=== PATIENT | female | born 1990 | race Caucasian/White ===

== ENCOUNTER 2017-03-21 17:58 | Emergency (ER) | payer OTHER ==
[~2017-03-21] VITALS: Ht 162.6 cm; Wt 47.3 kg
[2017-03-21 18:11] VITALS: BP 106/62; PULSE 89; RESP 18; TEMP 98.8; O2SAT 98
--- NOTE | 2017-03-21 19:03 | PD ---
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 Patient states that she fell yesterday on the right hip. Patient denies loss of consciousness. Patient denies any headache or neck pain. Patient denies any chest pain or shortness of breath. Patient states that she has sharp pain localized around the right rib area and right low quadrant abdomen. Patient denies any pain radiation. Patient denies any fever chills. Patient states that she has some spotting yesterday. Patient denies any vaginal bleeding today. Patient is about 8 weeks . Patient awaiting appointment with OB physician. Patient does not know her blood type. PFSH Past Medical History Medical History: Denies Significant Hx Diminished Hearing: No Musculoskeletal: Yes (Scoliosis) Immunizations Current: Yes Tetanus Vaccination: > 5 Years Influenza Vaccination: No ?: LMP: 8 weeks Past Surgical History Tonsillectomy: Yes Social History Alcohol Use: No Tobacco Use: Yes (1-2 cigarettes/day, trying to quit ) Substance Use: No Allergies-Medications (Allergen,Severity, Reaction): Coded Allergies: No Known Allergies (Unverified , 03/21/17) Reported Meds & Prescriptions Reported Meds & Active Scripts Active No Active Prescriptions or Reported Medications Review of Systems General / Constitutional: No: Fever Eyes: No: Visual changes HENT: No: Headaches Cardiovascular: No: Chest Pain or Discomfort Respiratory: No: Shortness of Breath Gastrointestinal: Positive: Abdominal Pain Genitourinary: No: Dysuria Musculoskeletal: Positive: Pain Skin: No Rash Neurologic: No: Weakness Psychiatric: No: Depression Endocrine: No: Polydipsia Hematologic/Lymphatic: No: Easy Bruising Physical Exam Narrative GENERAL: Well-nourished, well-developed patient. SKIN: Focused skin assessment warm/dry. HEAD: Normocephalic. EYES: No scleral icterus. No injection or drainage. NECK: Supple, trachea midline. No JVD or lymphadenopathy. CARDIOVASCULAR: Regular rate and rhythm without murmurs, gallops, or rubs. RESPIRATORY: Breath sounds equal bilaterally. No accessory muscle use. GASTROINTESTINAL: Abdomen soft, non-tender, nondistended. MUSCULOSKELETAL: Patient has mild tenderness on palpation lateral and 90 aspect the right hip joint. Full range of motion the right hip. Patient has no problem weightbearing right hip right leg. BACK: Nontender without obvious deformity. No CVA tenderness. 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 No blood in the vaginal vault. Data Data Last Documented VS Vital Signs Date Time Temp Pulse Resp B/P (MAP) Pulse Ox O2 Delivery O2 Flow Rate FiO2 03/21/17 18:11 98.8 89 18 106/62 (77) 98 Orders Orders Complete Rh (03/21/17 18:52) Urinalysis - C+S If Indicated (03/21/17 18:52) MDM Medical Decision Making Medical Screen Exam Complete: Yes Emergency Medical Condition: Yes Differential Diagnosis Differential diagnosis including contusion, fracture, dislocation, threatened AB , incomplete AB, completed AB, ectopic . Narrative Course 26-year-old female with right low quadrant abdominal pain, right hip pain and vaginal spotting. Patient's about 8 week . Procedures Procedure Narrative Emergency Department Pelvic ultrasound was performed with patient consent. The curvilinear probe was used in the transverse and sagittal views within the suprapubic region revealing single intrauterine . heart rate was 146. Fetus active. Diagnosis Primary Impression: Vaginal bleeding during , antepartum Additional Impression: Contusion of right hip Qualified Codes: S70.01XA - Contusion of right hip, initial encounter Patient Instructions: General Instructions Additional Instructions: Continue with vitamins. Follow-up with local OB physician. Return if increased abdominal pain, vaginal bleeding. Med/Other Pt SpecificInfo: No Meds Exist/No RX given Scripts No Active Prescriptions or Reported Meds Disposition: 01 DISCHARGE HOME Condition: Stable Jayden Soares MD Mar 21, 2017 19:03
[2017-03-21 19:21] LABS: BLOOD, URINE NEG (NEG); GLUCOSE,URINE NEG (NEG); KETONE, URINE NEG (NEG); NITRITE,URINE NEG (NEG)
[2017-03-21 19:33] LABS: MUCUS URINE MANY /lpf (OCC); URINE COLOR YELLOW (YELLW/STRAW)
[2017-03-21 19:34] LABS: CALCIUM OXALATE CRYSTALS,URINE MANY /hpf; COMMENT (UR) CULTURE INDICATED; CULTURE IF INDICATED CULTURE INDICATED; RBC, URINE 0-3 /hpf (0-3); SQUAMOUS EPITHELIAL CELL URINE > 8 /hpf (0-5)
[2017-03-21] MEDS ORDERED: CEPH-460 PO (19:40)
[2017-03-21] MEDS ORDERED: CEPHALEXIN MONOHYDRATE 500 MG CAP PO ONE (19:45)
[2017-03-21 19:51] VITALS: BP 101/72
--- NOTE | 2017-03-21 19:52 | PD ---
Physical Exam Time Seen by Provider: 19:[address] Soares left this patient with me to check the urine and the Rh status. Data Data Last Documented VS Vital Signs Date Time Temp Pulse Resp B/P (MAP) Pulse Ox O2 Delivery O2 Flow Rate FiO2 03/21/17 19:51 60 18 101/72 (82) 100 03/21/17 18:11 98.8 Orders Orders Complete Rh (03/21/17 18:52) Urinalysis - C+S If Indicated (03/21/17 18:52) Urine Culture (03/21/17 19:00) Cephalexin (Keflex) (03/21/17 19:45) Labs Laboratory Tests Test 03/21/17 19:00 Urine Color YELLOW Urine Turbidity SLIGHT Urine pH 6.0 Urine Specific [place] 1.028 Urine Protein NEG mg/dL Urine Glucose (UA) NEG mg/dL Urine Ketones NEG mg/dL Urine Occult Blood NEG Urine Nitrite NEG Urine Bilirubin NEG Urine Leukocyte Esterase NEG Urine RBC 0-3 /hpf Urine WBC 9-14 /hpf Urine Squamous Epithelial Cells > 8 /hpf Urine Calcium Oxalate Crystals MANY /hpf Urine Mucus MANY /lpf Microscopic Urinalysis Comment CULTURE INDICATED MDM Medical Record Reviewed: Yes Supervised Visit with [facility]: Yes Interpretation(s) The urine shows 9-14 white cells with many calcium oxalate crystals in culture is indicated. The specific gravity is 1.028. The blood type is O+. Differential Diagnosis Urinary tract infection, Rh-, , minor pelvic trauma Diagnosis Primary Impression: Vaginal bleeding during , antepartum Additional Impressions: Contusion of right hip Qualified Codes: S70.01XA - Contusion of right hip, initial encounter UTI (urinary tract infection) Patient Instructions: General Instructions, Rho(D) Immune Globulin (By injection), First Trimester Vaginal Bleed (ED), Hip Contusion (ED) Departure Forms: Tests/Procedures Additional Instruction: Continue with vitamins. Follow-up with local OB physician. Return if increased abdominal pain, vaginal bleeding. Med/Other Pt SpecificInfo: Prescription(s) given Scripts Cephalexin (Keflex) 500 Mg Capsule 500 MG PO QID for Infection for 10 Days, CAP 0 Refills Prov: Jese Ascencio MD 03/21/17 Disposition: 01 DISCHARGE HOME Condition: Stable Jese Ascencio MD Mar 21, 2017 19:52
[2017-04-16] MEDS ORDERED: PREN1CAP7 PO (09:50)
== END 2017-03-21 19:53 | disposition home or self-care (01) ==
LOC: PHED 17:58
DX: O23.41 Unspecified infection of urinary tract in pregnancy, first trimester (principal); Z3A.08 8 weeks gestation of pregnancy; S70.01XA Contusion of right hip, initial encounter; O99.331 Smoking (tobacco) complicating pregnancy, first trimester; W19.XXXA Unspecified fall, initial encounter
CPT/HCPCS: 81001; 86901; 87086; 99284

== ENCOUNTER → 2017-04-23 | Outpatient (CLI) | payer OTHER ==
[~2017-04-23] MED LIST: PREN1CAP7 PO
== END ==
LOC: HPND 11:11
PROVIDERS: ATTEND Obstetrics & Gynecology
DX: O26.842 Uterine size-date discrepancy, second trimester (principal); O09.32 Supervision of pregnancy with insufficient antenatal care, second trimester; Z3A.18 18 weeks gestation of pregnancy
CPT/HCPCS: 76805

== ENCOUNTER 2017-06-17 10:29 | Emergency (ER) | payer OTHER ==
[~2017-06-17] VITALS: Ht 162.6 cm; Wt 60.3 kg
[2017-06-17 10:33] VITALS: BP 111/65; PULSE 82; RESP 18; TEMP 98; O2SAT 100
--- NOTE | 2017-06-17 10:37 | PD ---
HPI Chief Complaint: Related Problem Time Seen by Provider: 10:37 Travel History International Travel<30 days: No Contact w/Intl Traveler<30days: No Traveled to known affect area: No History of Present Illness HPI 27-year-old female came to the emergency room with her boyfriend with history of slight vaginal bleeding/spotting this morning with some lower abdominal cramping. Patient is 23 weeks . She called her OB office and was asked to come to the emergency room and hence she is here. The bleeding is not continuous from my understanding. The bleeding first was noticed at 9:30 AM today. Patient is A0. Vital signs are otherwise stable. No history of trauma or vaginal intercourse in the last one week. PFSH Past Medical History Narrative Medical List of her past medical, surgical, social and family history is reviewed from the nursing note. Diminished Hearing: No Musculoskeletal: Yes (Scoliosis) Immunizations Current: Yes ?: LMP: 01/02/17 Past Surgical History Tonsillectomy: Yes Social History Alcohol Use: No Tobacco Use: Yes (1-2 cigarettes/day, trying to quit ) Substance Use: No Allergies-Medications (Allergen,Severity, Reaction): Coded Allergies: No Known Allergies (Unverified Adverse Reaction, Unknown, 06/17/17) Comments No known drug allergies Reported Meds & Prescriptions Reported Meds & Active Scripts Active Metronidazole 500 Mg Tab 500 Mg PO BID Citranatal [place] ( W/O Vit A W/ Fe Fumar) 27-1-260 Mg Cap 1 Cap PO DAILY Narrative Medication List of her home medications reviewed from the nursing note. Review of Systems Except as stated in HPI: all other systems reviewed are Neg Genitourinary: Positive: Vaginal Bleeding Physical Exam Narrative GENERAL: Awake, alert, no obvious distress SKIN: Focused skin assessment warm/dry. HEAD: Atraumatic. Normocephalic. EYES: Pupils equal and round. No scleral icterus. No injection or drainage. ENT: No nasal bleeding or discharge. Mucous membranes pink and moist. NECK: Trachea midline. No JVD. CARDIOVASCULAR: Regular rate and rhythm. No murmur appreciated. RESPIRATORY: No accessory muscle use. Clear to auscultation. Breath sounds equal bilaterally. GASTROINTESTINAL: Abdomen soft, non-tender, nondistended. Hepatic and splenic margins not palpable. Gravid uterus MUSCULOSKELETAL: No obvious deformities. No clubbing. No cyanosis. No edema. NEUROLOGICAL: Awake and alert. No obvious cranial nerve deficits. Motor grossly within normal limits. Normal speech. PSYCHIATRIC: Appropriate mood and affect; insight and judgment normal. Data Data Last Documented VS Orders Orders Ed Discharge Order (06/17/17 11:21) MDM Medical Decision Making Medical Screen Exam Complete: Yes Emergency Medical Condition: Yes Medical Record Reviewed: Yes Differential Diagnosis Placenta previa, premature labor Narrative Course 11:25 AM I discussed the case with Dr. Encarnacion who is the OB hospitalist at the [facility] and he is okay with the patient being sent to the ER at labor and delivery. Since patient is not continuously bleeding uncomfortable with her boyfriend driving her to the [facility]. I have given them those instructions and asked them to go straight to the labor and delivery. They understand and I'm going to discharge her. Procedures EKG Prior to Arrival: No Diagnosis Primary Impression: Second trimester Additional Impression: Vaginal bleeding Disposition: 01 DISCHARGE HOME Condition: Stable Misty Ramsey MD Jun 17, 2017 10:37
[2017-06-17] MEDS ORDERED: METR1TAB76 PO (14:54)
== END 2017-06-17 11:44 | disposition home or self-care (01) ==
LOC: PHED 10:29
DX: O46.92 Antepartum hemorrhage, unspecified, second trimester (principal); O99.332 Smoking (tobacco) complicating pregnancy, second trimester; Z87.39 Personal history of other diseases of the musculoskeletal system and connective tissue; Z3A.23 23 weeks gestation of pregnancy
CPT/HCPCS: 99282

== ENCOUNTER 2017-06-17 12:21 | Emergency (ER) | payer OTHER ==
[~2017-06-17] VITALS: Ht 162.6 cm; Wt 59.9 kg
--- NOTE | 2017-06-17 13:23 | PD ---
HPI Chief Complaint Vaginal bleeding, back pain Date Seen: Jun 17, 2017 Travel History International Travel<30 Days: No Contact w/Intl Traveler<30Days: No Known Affected Area: No History of Present Illness HPI Pt is a 27 at 26/5 weeks gestation that presents to the [facility] ED with chief complaints of vaginal bleeding that happened today. Patient states that she started having cramping around 9:30 AM this morning and when she went to urinate, she noticed blood on the paper after she wiped. She also states that she has been having very bad back pain for the past 2 days. She has had nausea and headache today but denies profuse vaginal bleeding, leaking or gush of fluid, and dysuria. Patient also denies chest pain and shortness of breath. She has noticed smoky white discharge that is more than usual. Her last sexual intercourse was a week ago and she denies any abdominal trauma. Patient states that she smokes 1 cigarette per day 8 years and denies alcohol or drug use. She has not been drinking enough fluids. She gets her care at the [place] [facility]. She had all her labs performed which were all negative for within normal limits. Notably, patient had positive bacterial vaginosis on Pap smear on 04/16. Medication prescription was sent to her pharmacy but she did not retrieve the medication. History Past Medical History Medical History: Denies Significant Hx Obstetric History Obstetric History Past Surgical History Surgical History: No Previous Surgery Family History Family History: Negative Social History Alcohol Use: No Tobacco Use: Yes (she smokes one cigarette per day 8 years) Substance Abuse: No Allergies-Medications (Allergen,Severity, Reaction): Coded Allergies: No Known Allergies (Unverified Adverse Reaction, Unknown, 06/17/17) Home Meds Active Scripts Metronidazole (Metronidazole) 500 Mg Tab, 500 MG PO BID for Infection, #14 TAB 0 Refills Prov:Mary Honeycutt MD 06/17/17 W/O Vit A W/ Fe Fumar (Citranatal [place]) 27-1-260 Mg Cap, 1 CAP PO DAILY for Nutritional Supplement, #30 CAP 11 Refills Prov:Natali Jonas 04/16/17 Review of Systems Except as stated in HPI: all other systems reviewed are Neg Physical Exam Narrative GENERAL: Well-nourished, well-developed patient. SKIN: Warm and dry. HEAD: Normocephalic and atraumatic. EYES: No scleral icterus. No injection or drainage. ENT: No nasal drainage noted. Mucous membranes pink. Airway patent. NECK: Supple, trachea midline. No JVD. CARDIOVASCULAR: Regular rate and rhythm without murmurs, gallops, or rubs. RESPIRATORY: Breath sounds equal bilaterally. No accessory muscle use. ABDOMEN/GI: Abdomen soft, mildly tender, bowel sounds present, no rebound, no guarding GENITOURINARY: External Genitalia: intact and normal in appearance Cervix: Posterior Dilatation: Closed Effacement: 0% Presentation: Breech by ultrasound Membranes: Intact Uterine Contractions: Present FHT's: Category: 1 Baseline: 140 Reactive: Up to 170 Variability: Moderate Decels: None EXTREMITIES: No cyanosis or edema. BACK: Nontender without obvious deformity. No CVA tenderness. NEUROLOGICAL: Awake and alert. Motor and sensory grossly within normal limits. Five out of 5 muscle strength in all muscle groups. Normal speech. PELVIC EXAM: Normally developed genitalia with no external lesions or eruptions. No blood identified in the vaginal vault. Vagina and cervix show frothy white vaginal discharge with a distinct odor. OS patent. No cervical friability. Data Data Vital Signs Reviewed: Yes Orders Orders Ob Poc Ultrasound (06/17/17 ) Vital Signs (Adult) .ON ADMISSION (06/17/17 13:21) ^ Labor Status (06/17/17 13:21) Urinalysis - C+S If Indicated (06/17/17 13:21) ^ Non Stress Test (06/17/17 13:21) ^ Hydration (06/17/17 13:21) Fibronectin (06/17/17 13:21) Wet Prep Profile (06/17/17 13:21) Gc And Chlamydia Pcr (06/17/17 13:21) Lactated Ringer's 1000 Ml Inj (Lr 1000 M (06/17/17 13:21) Ob/Psych Drug Screen, Urine (06/17/17 13:21) [facility] Medical Record Reviewed: Yes Interpretation(s) 27-year-old at 26/5 weeks gestation presents with contractions with symptoms concerning for bacterial vaginosis -IUP - heart tones category 1, reassuring -Contractions seen on monitor -No blood identified on speculum exam -Bedside ultrasound: posterior placenta, no placenta previa identified, EFW 918g. - fibronectin - negative -Urinalysis - not indicative of infection -Wet prep, GC - negative but will treat for BV due to patient's symptoms and physical exam findings of frothy white discharge with a distinct odor. Also pt has history of BV on pap smear for which she did not take medication -LR bolus -Terbutaline 25 mcg subcutaneous q 20 mins to 3 hr -Fentanyl 25 mcg IV once - if still mattie after fluids Narrative Course / MDM Patient did well after LR bolus and terbutaline with diminishing of contractions. Contractions were monitored for at least 2.5 hours. She was deemed safe for discharge home with a prescription for Flagyl 500 mg PO BID x 7 days for bacterial vaginosis. Diagnosis Diagnosis: Primary Impression: Premature uterine contractions causing threatened premature labor in second trimester Additional Impression: Bacterial vaginosis Disposition: DISCHARGE HOME Condition: Stable Scripts Metronidazole (Metronidazole) 500 Mg Tab 500 MG PO BID for Infection, #14 TAB 0 Refills Prov: Mary Honeycutt MD R2 06/17/17 Patient Instructions: Abdominal Pain in (ED), Labor (ED), Early Labor Signs (ED) Additional Instructions: -Drink lots of fluids -Tylenol for pain -Heating pads to affected areas -No strenuous activity -Take medications as prescribed -Continue vitamins -Follow up with your OB provider as previously scheduled Mary Honeycutt MD R2 Jun 17, 2017 13:23
[2017-06-17] MEDS ORDERED: LACTATED RINGER'S 1000 ML INJ 1,000 ML IV SCH (13:30)
[2017-06-17] MEDS ORDERED: TERBUTALINE INJ 1 MG/ML AMP SQ PRN (13:45)
[2017-06-17 13:54] LABS: BACTERIA, URINE RARE /hpf; BLOOD, URINE NEG (NEG); GLUCOSE,URINE NEG (NEG); KETONE, URINE NEG (NEG); MUCUS URINE FEW /lpf (OCC); NITRITE,URINE NEG (NEG); PH, URINE 6.5 (5.0-8.5); SQUAMOUS EPITHELIAL CELL URINE 4 /hpf (0-5); URINE COLOR YELLOW (YELLW/STRAW)
[2017-06-17 13:58] LABS: COMMENT (UR) CULT NOT INDICATED; CULTURE IF INDICATED CULT NOT INDICATED
[2017-06-17] MEDS ORDERED: METR1TAB76 PO (14:54)
[2017-06-17 16:03] LABS: CHLAMYDIA PCR NOT DETECTED (NOT DETECT); NEISSERIA PCR NOT DETECTED (NOT DETECT)
[2017-06-20 10:52] LABS: BATH SALTS (MDPV) UR NEG (NEG); ECSTASY (MDMA) UR NEG (NEG); HEROIN (6-ACETYLMORPHINE) UR NEG (NEG); K2 SPICE UR NEG (NEG); OBGABAPENTIN UR NEG (NEG); OBHYDROMORPHONE U NEG (NEG); OBMETHADONE UR NEG (NEG); PHENCYCLIDINE URINE NEG (NEG)
== END 2017-06-17 15:47 | disposition home or self-care (01) ==
LOC: HOBED 12:21
DX: O47.03 False labor before 37 completed weeks of gestation, third trimester (principal); O23.592 Infection of other part of genital tract in pregnancy, second trimester; N76.0 Acute vaginitis; B96.89 Other specified bacterial agents as the cause of diseases classified elsewhere; R11.0 Nausea; R51 Headache; O99.332 Smoking (tobacco) complicating pregnancy, second trimester; Z3A.26 26 weeks gestation of pregnancy; Z79.899 Other long term (current) drug therapy
CPT/HCPCS: 76815; 80307; 81001; 82731; 87210; 87491; 87591; 96361; 96374; 99285; G0481; J3010; J3105; J7120

== ENCOUNTER 2017-08-16 13:34 | Emergency (ER) | payer OTHER ==
[~2017-08-16 13:34] MED LIST changes: +AMOX500T PO
--- NOTE | 2017-08-16 14:22 | PD ---
HPI Chief Complaint Fluid leakage Date Seen: Aug 16, 2017 Time Seen: 14:20 Travel History International Travel<30 Days: No Contact w/Intl Traveler<30Days: No Known Affected Area: No History of Present Illness HPI Patient is a 27-year-old who presents to OB triage reporting fluid leakage earlier today. Patient describes small amount of clear fluid leakage after getting up from toilet. She denies vaginal bleeding and contractions. She reports positive movement. Patient [facility] at [facility] with [facility]. She denies complications during this except for contractions due to dehydration at 26 weeks. Weeks Gestation: 35 Para: 0 : 1 History Past Medical History Narrative Medical Scoliosis Obstetric History Obstetric History G1 - current , contractions due to dehydration at 26 weeks Past Surgical History Narrative Surgical Tonsillectomy Family History Family History: Negative Social History Alcohol Use: No Tobacco Use: Yes (2-3 cigarettes per day) Substance Abuse: No Allergies-Medications (Allergen,Severity, Reaction): Coded Allergies: No Known Allergies (Verified Allergy, Unknown, 08/16/17) Home Meds Active Scripts Nitrofurantoin Monohydrate Macrocrystals (Macrobid) 100 Mg Cap, 100 MG PO BID for Infection, #10 CAP 0 Refills Prov:Mini Triana MD R1 08/16/17 W/O Vit A W/ Fe Fumar (Citranatal [place]) 27-1-260 Mg Cap, 1 CAP PO DAILY for Nutritional Supplement, #30 CAP 11 Refills Prov:Natali Jonas 04/16/17 Review of Systems Except as stated in HPI: all other systems reviewed are Neg Physical Exam Narrative GENERAL: Well-nourished, well-developed patient. SKIN: Warm and dry. HEAD: Normocephalic and atraumatic. EYES: No scleral icterus. No injection or drainage. ENT: No nasal drainage noted. Mucous membranes pink. Airway patent. NECK: Supple, trachea midline. No JVD. CARDIOVASCULAR: Regular rate and rhythm without murmurs, gallops, or rubs. RESPIRATORY: Breath sounds equal bilaterally. No accessory muscle use. ABDOMEN/GI: Abdomen soft, non-tender, bowel sounds present, no rebound, no guarding Gravid to 35 weeks size GENITOURINARY: Deferred Uterine Contractions: irregular, not felt by patient FHT's: Category: 1 Baseline: 145 Reactive: + Variability: Moderate Decels: None EXTREMITIES: No cyanosis or edema. BACK: Nontender without obvious deformity. No CVA tenderness. NEUROLOGICAL: Awake and alert. Motor and sensory grossly within normal limits. Five out of 5 muscle strength in all muscle groups. Normal speech. Data Data Vital Signs Reviewed: Yes MDM Medical Record Reviewed: Yes Plan Patient is a 27-year-old who presents to OB triage reporting fluid leakage earlier today. Patient establish care at 16 weeks with [facility]. * Encourage hydration. * Amnisure - negative. * UA - yellow, hazy, large leukocyte esterase, many bacteria, culture indicated. Will follow culture for sensitivities. Discharge on Macrobid 100 mg BID x5 days. * Wet prep -negative. * Discharge home. Discussed with OB hospitalist. Diagnosis Diagnosis: Primary Impression: premature rupture of membranes Ruled Out: Amniotic fluid leaking Disposition: DISCHARGE HOME Condition: Stable Scripts Nitrofurantoin Monohydrate Macrocrystals (Macrobid) 100 Mg Cap 100 MG PO BID for Infection, #10 CAP 0 Refills Prov: Mini Triana MD R1 08/16/17 Mini Triana MD R1 Aug 16, 2017 14:22
[2017-08-16 15:34] LABS: BACTERIA, URINE MANY /hpf; BILIRUBIN, URINE NEG (NEG); BLOOD, URINE NEG (NEG); GLUCOSE,URINE NEG (NEG); KETONE, URINE NEG (NEG); MUCUS URINE FEW /lpf (OCC); NITRITE,URINE NEG (NEG); PH, URINE 6.5 (5.0-8.5); SQUAMOUS EPITHELIAL CELL URINE 36 /hpf (0-5); URINE COLOR YELLOW (YELLW/STRAW); URINE LEUKOCYTE ESTERASE LARGE (NEG)
[2017-08-16] MEDS ORDERED: MACR100C2 PO (15:47)
== END 2017-08-17 11:59 | disposition home or self-care (01) ==
LOC: HOBED 13:34
DX: O42.913 Preterm premature rupture of membranes, unspecified as to length of time between rupture and onset of labor, third trimester (principal); M41.9 Scoliosis, unspecified; O99.333 Smoking (tobacco) complicating pregnancy, third trimester; Z3A.35 35 weeks gestation of pregnancy; R82.99 Other abnormal findings in urine
CPT/HCPCS: 59025; 81001; 84112; 87086; 87210

== ENCOUNTER → 2017-08-26 | Outpatient (CLI) | payer OTHER ==
[~2017-08-26] MED LIST changes: -AMOX500T PO; +MACR100C2 PO
== END ==
LOC: HPND 10:48
PROVIDERS: ATTEND Obstetrics & Gynecology
DX: O32.1XX0 Maternal care for breech presentation, not applicable or unspecified (principal); O09.33 Supervision of pregnancy with insufficient antenatal care, third trimester
CPT/HCPCS: 76816

== ENCOUNTER → 2017-09-13 | Outpatient (CLI) | payer OTHER | LOC: HPND 08:12 | PROVIDERS: ATTEND Obstetrics & Gynecology | DX: O32.1XX0 Maternal care for breech presentation, not applicable or unspecified (principal) | CPT/HCPCS: 76816 ==

== ENCOUNTER → 2017-09-17 | Outpatient (CLI) | payer OTHER ==
--- NOTE | 2017-09-17 16:08 | PD.CONS ---
HPI Chief Complaint Patient presents for discussion of treatment options for breech presentation and her fetus Date Seen: Sep 17, 2017 Time Seen: 13:45 Travel History International Travel<30 Days: No Contact w/Intl Traveler<30Days: No Known Affected Area: No History of Present Illness HPI Patient 27-year-old black female at 39 and 6 who [facility] the [facility] and presents for treatment options related to a breech presentation she has with her fetus confirmed by ultrasound last week. Patient 's EDC is 09/18/17 and she has had regular care. Her baby is active she has had no other problems or complications,. takes iron and vitamins. Weeks Gestation: 39 Para: 0 : 1 History Past Surgical History Narrative Surgical Tonsillectomy Social History Narrative Social History She smokes 2-3 cigarettes a day Alcohol Use: No Tobacco Use: Yes Substance Abuse: No Allergies-Medications (Allergen,Severity, Reaction): Coded Allergies: No Known Allergies (Verified Allergy, Unknown, 08/19/17) Home Meds Active Scripts Nitrofurantoin Monohydrate Macrocrystals (Macrobid) 100 Mg Cap, 100 MG PO BID for Infection, #10 CAP 0 Refills Prov:Mini Triana MD 08/16/17 W/O Vit A W/ Fe Fumar (Citranatal [place]) 27-1-260 Mg Cap, 1 CAP PO DAILY for Nutritional Supplement, #30 CAP 11 Refills Prov:Natali Jonas 04/16/17 Review of Systems General / Constitutional: No: Fever, Weight Gain, Chills, Other Eyes: No: Diploplia, Blurred Vision, Visual changes, Pain, Photophobia HENT: No: Headaches, Vertigo, Lightheadedness Cardiovascular: No: Irregular Rhythm, Chest Pain or Discomfort, Palpitations, Tachycardia, Syncope, Varicosities, Edema, Cyanosis Respiratory: No: Cough, Short of Breath, Other Gastrointestinal: No: Nausea, Vomiting, Diarrhea Genitourinary: No: Decreased Urinary Output, Oliguria Musculoskeletal: No: Limited ROM, Weakness, Cramping, Edema, Pain Skin: No Rash, No Itching, No Dryness, No Lumps, No Change in Pigmentation, No Change in Nails, No Alopecia, No Lesions Neurologic: No: Weakness, Dizziness, Syncope, Focal Abnormalities, Coordination Problem, Headache, Slurred Speech, Seizures Psychiatric: No: Depression, Suicidal Ideations, Homicidal Ideation Endocrine: No: Heat Intolerance, Cold Intolerance, Polydipsia, Polyuria, Other Physical Exam Narrative GENERAL: Well-nourished, well-developed patient. SKIN: Warm and dry. HEAD: Normocephalic and atraumatic. EYES: No scleral icterus. No injection or drainage. ENT: No nasal drainage noted. Mucous membranes pink. Airway patent. NECK: Supple, trachea midline. No JVD. CARDIOVASCULAR: Regular rate and rhythm without murmurs, gallops, or rubs. RESPIRATORY: Breath sounds equal bilaterally. No accessory muscle use. BREASTS: Bilateral exam showed no masses , no retractions, no nipple discharge. ABDOMEN/GI: Abdomen soft, non-tender, bowel sounds present, no rebound, no guarding Gravid to [-39] weeks size Fundal Height: [39-] GENITOURINARY: External Genitalia: intact and normal in appearance BUS glands: [-] Cervix: [-post] Dilatation: [0-] Effacement: [0-] Station: [-3] Presentation: [breech-] Membranes: [intact ] Uterine Contractions: [none-] FHT's: Category: [1-] Baseline: [133-] Reactive: [-R] Variability: [mod-] Decels: [none-] EXTREMITIES: No cyanosis or edema. BACK: Nontender without obvious deformity. No CVA tenderness. NEUROLOGICAL: Awake and alert. Motor and sensory grossly within normal limits. Five out of 5 muscle strength in all muscle groups. Normal speech. MDM Interpretation(s) Patient is 27-year-old white female at 39 weeks 6 days who presents with a fetus in a breech presentation and will be planning a section for delivery. EDC is 09/18/17 Plan Plan section for tomorrow pain on her due date, plan to check ultrasound prior to surgery just to be sure she still breech Diagnosis: Breech presentation at term Disposition: 01 DISCHARGE HOME Condition: Stable Abilio Encarnacion II, MD Sep 17, 2017 16:08
== END ==
LOC: HPND 15:32
PROVIDERS: ATTEND Obstetrics & Gynecology Maternal & Fetal Medicine
DX: O32.1XX0 Maternal care for breech presentation, not applicable or unspecified (principal); O99.333 Smoking (tobacco) complicating pregnancy, third trimester; F17.210 Nicotine dependence, cigarettes, uncomplicated; Z3A.39 39 weeks gestation of pregnancy